=== PATIENT | female | born 1980 | race African-American/Black ===

== ENCOUNTER → 2016-09-25 | Outpatient (CLI) | payer OTHER ==
[~2016-09-25] MED LIST: ALBU6.7H INH; DESO1TAB14 PO
[2016-09-25 14:31] LABS: BLOOD, URINE NEG (NEG); COMMENT (UR) CULT NOT INDICATED; CULTURE IF INDICATED CULT NOT INDICATED; GLUCOSE,URINE NEG (NEG); KETONE, URINE NEG (NEG); MUCUS URINE FEW /lpf (OCC); NITRITE,URINE NEG (NEG); PH, URINE 5.5 (5.0-8.5); SQUAMOUS EPITHELIAL CELL URINE 2 /hpf (0-5); URINE COLOR YELLOW (YELLW/STRAW)
[2016-09-25 14:41] LABS: AUTOMATED NEUTROPHIL # 3.8 TH/MM3 (1.8-7.7); BASOPHIL % 0.6 % (0.0-2.0); EOSINOPHIL # 0.5 TH/MM3 (0-0.4); EOSINOPHIL % 5.4 % (0.0-4.0); HEMATOCRIT 36.6 % (35.0-46.0); HEMO FLAGS DIFF FINAL; LYMPH % 40.3 % (9.0-44.0); LYMPHOCYTE # 3.4 TH/MM3 (1.0-4.8); MEAN CELL VOLUME 86.1 FL (80.0-100.0); MEAN CORPUSCULAR HEMOGLOBIN 28.1 PG (27.0-34.0); MEAN CORPUSCULAR HGB CONC 32.7 % (32.0-36.0); MONO % 7.6 % (0.0-8.0); NEUT % 46.1 % (16.0-70.0); PLATELET COUNT 293 TH/MM3 (150-450); RED BLOOD COUNT 4.26 MIL/MM3 (4.00-5.30); RED CELL DISTRIBUTION WIDTH 13.3 % (11.6-17.2); WHITE BLOOD COUNT 8.3 TH/MM3 (4.0-11.0)
--- NOTE | 2016-09-26 11:04 | EKG ---
Date Performed: 09/25/2016 Time Performed: 13:47:03 PTAGE: 36 years EKG: Sinus rhythm NORMAL ECG NO PREVIOUS TRACING DOCTOR: Adán Dooley Interpretating Date/Time 09/26/2016 11:02:10
== END ==
LOC: CPRE 13:29
PROVIDERS: ATTEND Obstetrics & Gynecology
DX: Z01.810 Encounter for preprocedural cardiovascular examination (principal); D06.9 Carcinoma in situ of cervix, unspecified; Z01.812 Encounter for preprocedural laboratory examination
CPT/HCPCS: 36415; 81001; 84703; 85025; 93005

== ENCOUNTER → 2016-09-28 | Day surgery (SDC) | payer OTHER ==
--- NOTE | 2016-09-27 21:08 | MH ---
cc: CALEB RODRIGUEZ DATE OF ADMISSION 09/28/2016 DATE OF : 80 DIAGNOSIS High-grade dysplasia endocervix HISTORY OF PRESENT ILLNESS The patient is a 36-year-old black female para 1-0-0-2 who had Pap smear on 06/22/2016 that returned with positive high-risk HPV. Colposcopy directed biopsies on 07/12/2016 showed high-grade dysplasia endocervix, moderate to severe. She is now admitted for outpatient cone biopsy. PAST MEDICAL HISTORY/PREVIOUS SURGERIES 1. Left breast biopsy 2000 2. LEEP procedure in 2011 3. for twins 2012 4. History of asthma MEDICATIONS OCPs ALLERGIES None TRANSFUSIONS None. SOCIAL HISTORY She is . 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 Alcohol occasional, tobacco none. Drugs none. FAMILY HISTORY Noncontributory. PHYSICAL EXAMINATION GENERAL: A well-nourished well-developed black female. VITAL SIGNS: Stable. HEENT: Exam is normal. CHEST: Clear HEART: Regular rate. BREASTS: Symmetrical ABDOMEN: Benign. PELVIC: Normal external genitalia and BUS. Vagina normal, cervix normal, uterus normal size shape anterior. No adnexal masses. ASSESSMENT As above. She is now admitted for a cold knife biopsy. While in the office, I explained the procedures, the risks, benefits and complications and possible need for additional surgery pending findings. I also discussed the risk of hemorrhage, transfusion and hysterectomy. The patient would like to proceed. MD VIRY Iyer/ /8:38 PM /8:50 PM KEYON
[~2016-09-28] VITALS: Ht 165.1 cm; Wt 90.6 kg
[~2016-09-28] MED LIST changes: +*morphine SULFATE 8 MG/ML PERIprocedure ONLY ONE; +ACETAMINOPHEN 1000 MG/100 ML VIAL IV SCH; +BUPIVACAINE/EPINEPHRINE 0.5% PF 10 ML VIAL ONE; +CHLORHEXIDINE GLUCONATE 2 % 1 PACK (2 CLOTHS) TOPICAL PRN; +DEXAMETHASONE SOD PHOS 4 MG/ML VIAL ONE; +DO NOT ADM ANY ANTICOAGULANT DRUGS PRN; +FAMOTIDINE 20 MG/2 ML VIAL ONE; +INSULIN HUMAN REGULAR 1,000 UNITS/10 ML VIAL SQ PRN; +KETOROLAC TROMETHAMINE 60 MG/2 ML (IM) VIAL IM ONE; +LACTATED RINGER'S 1000 ML IV PRN; +LIDOCAINE 1%/EPINEPHrine 1:100,000 SOLN 50 ML VIAL ONE; +METOPROLOL TARTRATE 25 MG TAB PO PRN; +MIDAZOLAM HCL 2 MG/2 ML VIAL ONE; +ONDANSETRON HCL 4 MG/2 ML VIAL ONE; +POVIDONE IODINE 5% (ANTISEPSIS KIT) 4 APPLICATIONS EACH NARE PRN; +PROPOFOL 200 MG/20 ML AMP IV ONE; +SODIUM CHLORID 0.9% 500 ML IV PRN; +ceFAZolin 1,000 MG/NS 100 ML IV SCH; +fentaNYL CITRATE 250 MCG/5 ML AMP ONE
[2016-09-28 06:15] VITALS: BP 112/83; PULSE 70; RESP 16; TEMP 98.1; O2SAT 98
[2016-09-28 09:40] VITALS: BP 121/61; PULSE 70; RESP 18; TEMP 97.8; O2SAT 97
--- NOTE | 2016-10-01 10:22 | MP ---
cc: CALEB RODRIGUEZ. DATE OF SURGERY 09/28/16 PREOPERATIVE DIAGNOSIS JERICA II - III endocervix. POSTOPERATIVE DIAGNOSIS JERICA II - III endocervix. Pathology pending. PROCEDURE Cold knife cone biopsy. ANESTHESIA General LMA. ESTIMATED BLOOD LOSS Less than 25 cc. FLUIDS 1 liter crystalloid. OBJECTIVE FINDINGS Following induction of adequate general LMA anesthesia the patient was prepped and draped supine on the operating table, dorsal lithotomy position in sterile fashion with the bladder being drained by Aguilar catheterization. Exams revealed a normal size, shape, anterior uterus, no adnexal masses. Heavy weighted speculum was placed posterior fornix of vagina. Anterior lip of the cervix grasped with a single tooth tenaculum. Cervix, uterus sounded to 8 cm with soft dilator. The cervix was injected with 10 cc of 0.5% Marcaine plus epinephrine and then a 15 blade on bent handle was used to perform the cold knife cone which was tagged at the 12 o'clock position. Cone bed was cauterized the Bovie and four sutures of 0 Vicryl placed, each one quadrant going outside, inside, outside with a soft dilator in place to ensure patency of the cervical os. These were all then tied down, each one encompassing one quarter of the cone bed with excellent hemostasis. The operative sites were observed for bleeding, there was none, minor oozing. The cervix was sounded, was patent. The cervix was dusted with Ila. The sutures were cut long. Instruments removed, all counts correct. The patient was taken out of [facility]. She was awakened and taken to the recovery room in good condition. MD VIRY Iyer/ALISHA /8:01 AM /10:10 AM KEYON
== END | disposition home or self-care (01) ==
LOC: HSDC 05:32
PROVIDERS: ATTEND Obstetrics & Gynecology
DX: D06.9 Carcinoma in situ of cervix, unspecified (principal); J45.909 Unspecified asthma, uncomplicated
CPT/HCPCS: 00940; 57520; 88307; J0131; J1100; J1885; J2250; J2270; J2405; J3010; J7120